=== PATIENT | female | born 1940 | race Caucasian/White ===

== ENCOUNTER 2023-08-07 08:53 | Observation (INO) | payer MEDICARE, OTHER ==
[~2023-08-07] VITALS: Ht 157.5 cm; Wt 57.5 kg
[~2023-08-07 08:53] MED LIST changes: -Amlodipine Bes2.5 MG PO; -CLOP75 PO; -ESCITALOPRAM OXA5 MG PO; -EUTHYROX50 MCG PO; -METO100ER PO; -PANT40 PO; -POTA10T PO; -Prinivil10 MG PO; -WARF2.5 PO; -WARF3 PO; -WARF5 PO
[2023-08-07] MEDS ORDERED: CLOP75 PO (09:22)
[2023-08-07] MEDS ORDERED: Amlodipine Bes2.5 MG PO (09:22)
[2023-08-07] MEDS ORDERED: ESCITALOPRAM OXA5 MG PO (09:24)
[2023-08-07] MEDS ORDERED: Prinivil10 MG PO (09:27)
[2023-08-07] MEDS ORDERED: EUTHYROX50 MCG PO (09:27)
[2023-08-07] MEDS ORDERED: METO100ER PO (09:27)
[2023-08-07] MEDS ORDERED: WARF3 PO ×2 (09:28→16:56)
[2023-08-07] MEDS ORDERED: WARF2.5 PO (09:28)
[2023-08-07 09:59] LABS: BASOPHILS ABSOLUTE AUTO 0.05 K/mm3 (0.00-0.23); BASOPHILS PERCENT AUTO 1 % (0-2); EOSINOPHILS ABSOLUTE AUTO 0.06 K/mm3 (0.00-0.68); EOSINOPHILS PERCENT AUTO 1 % (0-6); Hematocrit 18.9 % (33.0-51.0); IMMATURE GRAN ABSOLUTE AUTO 0.03 K/mm3 (0.00-0.10); IMMATURE GRAN PERCENT AUTO 1 % (0-1); LYMPHOCYTES ABSOLUTE AUTO 0.67 K/mm3 (0.84-5.20); LYMPHOCYTES PERCENT AUTO 10 % (21-46); MONOCYTES ABSOLUTE AUTO 0.62 K/mm3 (0.16-1.47); MONOCYTES PERCENT AUTO 10 % (4-13); Mean Corpuscular Volume 82 fL (80-100); Mean Platelet Volume 8.8 fL (9.1-12.4); NEUTROPHILS ABSOLUTE AUTO 5.13 K/mm3 (1.96-9.15); NEUTROPHILS PERCENT AUTO 78 % (41-73); Platelet Count 491 K/mm3 (150-400); RDW Coefficient Variation 17.5 % (11.7-14.2); RDW Standard Deviation 51.8 fL (35.1-46.3); White Blood Cell Count 6.56 K/mm3 (4.00-11.30)
[2023-08-07 10:05] LABS: Hemoglobin 5.3 g/dL (11.5-16.0)
[2023-08-07 10:09] LABS: IMMATURE RETIC FRACTION 26.9 % (2.3-16.0); International Normalized Ratio 1.64; Prothrombin Time Results 16.7 Sec (9.7-11.5); RETIC HGB EQUIVALENT 16.8 pg (28.20-36.60); RETICULOCYTE ABSOLUTE 0.0642 M/mm3 (0.0200-0.1100); RETICULOCYTE COUNT PERCENT 2.84 % (0.50-2.50)
[2023-08-07 10:33] LABS: Bilirubin, Direct 0.1 mg/dL (0.0-0.3); Percent Saturation 1.9 % (15.0-50.0)
[2023-08-07 10:38] LABS: Albumin, Blood 3.1 g/dL (3.4-5.0); Bilirubin, Total 0.6 mg/dL (0.1-1.0); Calcium, Blood 8.4 mg/dL (8.5-10.1); Creatinine, Blood 0.75 mg/dL (0.40-1.00); Globulin, Blood 3.2 g/dL (2.2-4.0); Thyroid Stimulating Hormone 1.37 uIU/mL (0.360-4.800); Total Protein, Blood 6.3 g/dL (6.4-8.2)
[2023-08-07] MEDS ORDERED: Potassium Chloride 20 MEQ/15 ML UDC PO ONE (11:45)
[2023-08-07] MEDS ORDERED: Furosemide 10 MG / ML 2ML Vial IV ONE (11:45)
[2023-08-07] MEDS ORDERED: NS 1,000 ML IV SCH (12:10)
[2023-08-07] MEDS ORDERED: FLU VACC QS2023-24(6MOS UP)/PF 60 MCG/0.5 ML SYRINGE IM SCH (12:55)
[2023-08-07] MEDS ORDERED: WARF5 PO (16:56)
[2023-08-07 17:44] LABS: BASOPHILS ABSOLUTE AUTO 0.04 K/mm3 (0.00-0.23); BASOPHILS PERCENT AUTO 1 % (0-2); EOSINOPHILS ABSOLUTE AUTO 0.03 K/mm3 (0.00-0.68); EOSINOPHILS PERCENT AUTO 0 % (0-6); Hemoglobin 6.9 g/dL (11.5-16.0); IMMATURE GRAN ABSOLUTE AUTO 0.02 K/mm3 (0.00-0.10); IMMATURE GRAN PERCENT AUTO 0 % (0-1); LYMPHOCYTES ABSOLUTE AUTO 0.99 K/mm3 (0.84-5.20); LYMPHOCYTES PERCENT AUTO 14 % (21-46); MONOCYTES ABSOLUTE AUTO 0.82 K/mm3 (0.16-1.47); MONOCYTES PERCENT AUTO 12 % (4-13); Mean Corpuscular HGB 25.1 pg (26.0-34.0); Mean Corpuscular Volume 84 fL (80-100); Mean Platelet Volume 8.9 fL (9.1-12.4); NEUTROPHILS ABSOLUTE AUTO 4.96 K/mm3 (1.96-9.15); NEUTROPHILS PERCENT AUTO 72 % (41-73); NRBC ABSOLUTE 0.02 K/mm3 (0.00-0.02); NRBC Auto 0.3 /100 WBC (0.0-0.2); Platelet Count 458 K/mm3 (150-400); RDW Coefficient Variation 16.9 % (11.7-14.2); RDW Standard Deviation 51.6 fL (35.1-46.3); Red Blood Cell Count 2.75 M/mm3 (3.80-5.20); White Blood Cell Count 6.86 K/mm3 (4.00-11.30)
[2023-08-07 19:31] VITALS: BP 127/67
[2023-08-07 19:55] VITALS: BP 148/62
[2023-08-07] MEDS ORDERED: Lisinopril 10 MG Tab PO SCH (21:00)
[2023-08-08] VITALS (7 sets, daily range): BP systolic 106–147; BP diastolic 51–68
[2023-08-08 05:05] LABS: BASOPHILS ABSOLUTE AUTO 0.05 K/mm3 (0.00-0.23); BASOPHILS PERCENT AUTO 1 % (0-2); EOSINOPHILS ABSOLUTE AUTO 0.08 K/mm3 (0.00-0.68); EOSINOPHILS PERCENT AUTO 1 % (0-6); Hematocrit 21.9 % (33.0-51.0); Hemoglobin 6.6 g/dL (11.5-16.0); IMMATURE GRAN ABSOLUTE AUTO 0.03 K/mm3 (0.00-0.10); IMMATURE GRAN PERCENT AUTO 0 % (0-1); LYMPHOCYTES ABSOLUTE AUTO 1.17 K/mm3 (0.84-5.20); LYMPHOCYTES PERCENT AUTO 17 % (21-46); MONOCYTES ABSOLUTE AUTO 0.78 K/mm3 (0.16-1.47); MONOCYTES PERCENT AUTO 11 % (4-13); Mean Corpuscular HGB 24.8 pg (26.0-34.0); Mean Corpuscular HGB Conc 30.1 g/dL (31.5-36.5); Mean Corpuscular Volume 82 fL (80-100); Mean Platelet Volume 8.9 fL (9.1-12.4); NEUTROPHILS ABSOLUTE AUTO 4.75 K/mm3 (1.96-9.15); NEUTROPHILS PERCENT AUTO 69 % (41-73); Platelet Count 437 K/mm3 (150-400); RDW Coefficient Variation 17.2 % (11.7-14.2); RDW Standard Deviation 51.6 fL (35.1-46.3); Red Blood Cell Count 2.66 M/mm3 (3.80-5.20); White Blood Cell Count 6.86 K/mm3 (4.00-11.30)
[2023-08-08 05:28] LABS: Anion Gap 5 mmol/L (6-16); Blood Urea Nitrogen 10 mg/dL (8-24); Bun/Creatinine Ratio 15.4 (12.0-20.0); CO2, Blood 30 mmol/L (21-32); Calcium, Blood 8.2 mg/dL (8.5-10.1); Chloride, Blood 106 mmol/L (98-108); Creatinine, Blood 0.65 mg/dL (0.40-1.00); Glomerular Filtration Rate 87 (60-); Glucose, Blood 99 mg/dL (70-99); Magnesium, Blood 2.1 mg/dL (1.6-2.4); Phosphorus, Blood 2.2 mg/dL (2.5-4.9); Sodium, Blood 141 mmol/L (136-145)
[2023-08-08] MEDS ORDERED: Levothyroxine Sodium 0.05 MG Tab PO SCH (06:00)
[2023-08-08] MEDS ORDERED: Pantoprazole Sodium 40 MG Tab PO SCH (06:00)
[2023-08-08] MEDS ORDERED: NS 500 ML IV SCH (08:10)
[2023-08-08] MEDS ORDERED: Metoprolol Succinate 50 MG TABCR PO SCH (09:00)
[2023-08-08] MEDS ORDERED: AmLODIPine Besylate 5 MG Tab PO SCH (09:00)
[2023-08-08] MEDS ORDERED: Citalopram Hydrobromide 10 MG TAB PO SCH (09:00)
[2023-08-08] MEDS ORDERED: Sod Ferric Gluc Complx/Sucrose 125 MG in NS 100 ML IV SCH (12:00)
[2023-08-08] MEDS ORDERED: PANT40 PO (16:52)
[2023-08-08] MEDS ORDERED: POTA10T PO (16:53)
[2023-08-09 02:18] LABS: HAPTOGLOBIN 212 mg/dL (30-200)
== END 2023-08-08 17:24 | disposition home or self-care (01) ==
LOC: ER 08:53 → MEDS 08:54
PROVIDERS: Student in an Organized Health Care Education/Training Program; ADMIT Family Medicine
DX: D50.9 Iron deficiency anemia, unspecified (principal); I48.91 Unspecified atrial fibrillation; I11.0 Hypertensive heart disease with heart failure; I50.20 Unspecified systolic (congestive) heart failure; J44.9 Chronic obstructive pulmonary disease, unspecified; E03.9 Hypothyroidism, unspecified; Z66 Do not resuscitate; R06.00 Dyspnea, unspecified; Z95.0 Presence of cardiac pacemaker; Z79.890 Hormone replacement therapy; Z79.01 Long term (current) use of anticoagulants; Z79.02 Long term (current) use of antithrombotics/antiplatelets; Z79.899 Other long term (current) drug therapy; Z95.818 Presence of other cardiac implants and grafts
CPT/HCPCS: 36415; 36430; 71046; 74177; 80053; 80069; 82248; 83010; 83540; 83550; 83615; 83735; 83880; 84443; 85025; 85045; 85610; 86850; 86880; 86900; 86901; 86923; 93005; 93010; 96361; 96365; 96374; 96375; 99285-25; A9270; G0378; J1940; J2916; J7030; P9016; Q9967

== ENCOUNTER → 2023-08-07 | Outpatient (CLI) | payer MEDICARE, OTHER ==
[~2023-08-07] MED LIST: Amlodipine Bes2.5 MG PO; CLOP75 PO; ESCITALOPRAM OXA5 MG PO; EUTHYROX50 MCG PO; JANTOVEN5 M2 PO; METO100ER PO; PANT40 PO; POTA10T PO; Prinivil10 MG PO; WARF2.5 PO; WARF3 PO; WARF5 PO
[2023-08-07 07:55] LABS: BASOPHILS ABSOLUTE AUTO 0.07 K/mm3 (0.00-0.23); BASOPHILS PERCENT AUTO 1 % (0-2); EOSINOPHILS ABSOLUTE AUTO 0.13 K/mm3 (0.00-0.68); EOSINOPHILS PERCENT AUTO 2 % (0-6); Hematocrit 19.9 % (33.0-51.0); IMMATURE GRAN ABSOLUTE AUTO 0.05 K/mm3 (0.00-0.10); IMMATURE GRAN PERCENT AUTO 1 % (0-1); LYMPHOCYTES PERCENT AUTO 17 % (21-46); MONOCYTES ABSOLUTE AUTO 0.71 K/mm3 (0.16-1.47); MONOCYTES PERCENT AUTO 10 % (4-13); Mean Corpuscular HGB 23.6 pg (26.0-34.0); Mean Corpuscular HGB Conc 28.6 g/dL (31.5-36.5); Mean Corpuscular Volume 82 fL (80-100); Mean Platelet Volume 8.8 fL (9.1-12.4); NEUTROPHILS ABSOLUTE AUTO 5.22 K/mm3 (1.96-9.15); NEUTROPHILS PERCENT AUTO 70 % (41-73); Platelet Count 539 K/mm3 (150-400); RDW Coefficient Variation 17.3 % (11.7-14.2); RDW Standard Deviation 52.1 fL (35.1-46.3); Red Blood Cell Count 2.42 M/mm3 (3.80-5.20); White Blood Cell Count 7.48 K/mm3 (4.00-11.30)
[2023-08-07 07:57] LABS: Hemoglobin 5.7 g/dL (11.5-16.0)
[2023-08-07 08:05] LABS: Albumin, Blood 3.1 g/dL (3.4-5.0); Albumin/Globulin Ratio 0.9 (0.8-1.8); Bilirubin, Total 0.5 mg/dL (0.1-1.0); Bun/Creatinine Ratio 15.6 (12.0-20.0); Calcium, Blood 8.4 mg/dL (8.5-10.1); Creatinine, Blood 0.9 mg/dL (0.40-1.00); Globulin, Blood 3.4 g/dL (2.2-4.0); Potassium, Blood 2.8 mmol/L (3.5-5.5); Total Protein, Blood 6.5 g/dL (6.4-8.2)
== END ==
LOC: LAB 07:51 → LAB SHORT 07:51
PROVIDERS: Physician Assistant
DX: R06.00 Dyspnea, unspecified (principal)
CPT/HCPCS: 80053; 83880; 85025

== ENCOUNTER 2024-05-06 02:43 | Inpatient (IN) | payer MEDICARE, OTHER ==
[~2024-05-06] VITALS: Ht 165.1 cm; Wt 54.4 kg
[~2024-05-06 02:43] MED LIST changes: +Amlodipine Bes2.5 MG PO; +CLOP75 PO; +ESCITALOPRAM OXA5 MG PO; +EUTHYROX50 MCG PO; +METO100ER PO; +PANT40 PO; +POTA10T PO; +Prinivil10 MG PO; +WARF2.5 PO; +WARF3 PO; +WARF5 PO
[2024-05-06] MEDS ORDERED: METO50ER PO (03:19)
[2024-05-06] MEDS ORDERED: NS 1,000 ML IV SCH (03:25)
[2024-05-06] MEDS ORDERED: Diphth,Pertuss(Acell),Tet Vac 0.5 ML VIAL IM ONE (03:30)
[2024-05-06] MEDS ORDERED: Ondansetron HCl 2 MG / ML 2ML Vial IV ONE (03:30)
[2024-05-06 03:36] LABS: BASOPHILS ABSOLUTE AUTO 0.07 K/mm3 (0.00-0.23); BASOPHILS PERCENT AUTO 1 % (0-2); EOSINOPHILS ABSOLUTE AUTO 0.14 K/mm3 (0.00-0.68); EOSINOPHILS PERCENT AUTO 2 % (0-6); Hematocrit 37.7 % (33.0-51.0); Hemoglobin 12.6 g/dL (11.5-16.0); IMMATURE GRAN ABSOLUTE AUTO 0.02 K/mm3 (0.00-0.10); IMMATURE GRAN PERCENT AUTO 0 % (0-1); LYMPHOCYTES ABSOLUTE AUTO 2.47 K/mm3 (0.84-5.20); LYMPHOCYTES PERCENT AUTO 35 % (21-46); MONOCYTES ABSOLUTE AUTO 0.62 K/mm3 (0.16-1.47); MONOCYTES PERCENT AUTO 9 % (4-13); Mean Corpuscular HGB 31.8 pg (26.0-34.0); Mean Corpuscular HGB Conc 33.4 g/dL (31.5-36.5); Mean Corpuscular Volume 95 fL (80-100); NEUTROPHILS PERCENT AUTO 53 % (41-73); Platelet Count 224 K/mm3 (150-400); RDW Coefficient Variation 13.4 % (11.7-14.2); RDW Standard Deviation 47.3 fL (35.1-46.3); Red Blood Cell Count 3.96 M/mm3 (3.80-5.20); White Blood Cell Count 7.12 K/mm3 (4.00-11.30)
[2024-05-06 03:50] LABS: Albumin, Blood 3.5 g/dL (3.4-5.0); Albumin/Globulin Ratio 1.2 (0.8-1.8); Bilirubin, Total 0.3 mg/dL (0.1-1.0); Bun/Creatinine Ratio 32.3 (12.0-20.0); Creatinine, Blood 0.71 mg/dL (0.40-1.00); Potassium, Blood 3.9 mmol/L (3.5-5.5); Total Protein, Blood 6.5 g/dL (6.4-8.2)
[2024-05-06] MEDS ORDERED: FentaNYL Citrate 50 MCG/ML 2 ML Injection IV PRN ×3 (04:25→21:35)
[2024-05-06] MEDS ORDERED: Ondansetron HCl 2 MG / ML 2ML Vial IV PRN (05:00)
[2024-05-06] MEDS ORDERED: FLU VACC TS2024-25(6MOS UP)/PF 45 MCG/0.5 ML SYRINGE IM SCH (05:00)
[2024-05-06 13:11] VITALS: BP 110/91
--- NOTE | 2024-05-06 15:29 | NUR ---
PT ARRIVED TO THE ROOM FROM ER VIA A GOURNEY. SLID PT TO HOSPITAL BED. PT GRIMACING WITH MOVEMENT. A&O X2-3 AT BASELINE. DOES NOT RECALL THE FALL LAST NIGHT. 2L NC UPON ARRIVAL TO KEEP SATS GREATER THAN 90%. PUREWICK IN PLACE. CHANGED PATIENT TO HOSPITAL GOWN. BELONGINGS GIVEN TO MAGDA. SKIN TEAR ON R HAND, QUARTER SIZED, REDRESSED WITH EXODERM AND TEGADERM, COVERED WITH MESH. R LEG EXTERNALLY ROTATED. PAIN WITH MOVEMENT. PAIN MANAGED PER EMAR. VSS. PERRLA. PPP. CAP REFILL <3 SECONDS
[2024-05-06] MEDS ORDERED: Acetaminophen 325 MG TABLET PO PRN (15:40)
--- NOTE | 2024-05-06 17:19 | NUR ---
Shift Summary No acute events noted since arrival to room. A&Ox2 at this time. Forgetful at times. Reoriented as needed. Bed alarm on. Pleasent mood, flat affect. PERRLA, VSS, 1L NC, Sats >90%. R hand skin tear covered with xeroform, tegaderm and coban, c/d/i at this time. Pain managed per emar. Daughter at bedside. Purewick in place. Eating small bites of food/drinking/voiding.
[2024-05-06] MEDS ORDERED: Metoprolol Succinate 50 MG TABCR PO SCH (18:00)
[2024-05-06 19:42] VITALS: BP 152/73
[2024-05-06] MEDS ORDERED: QUET25 PO (20:28)
--- NOTE | 2024-05-07 04:00 | NUR ---
HARVEY PLACEMENT HARVEY ATTEMPTED TO BE PLACED BY THIS RN AND FORENSIC ENGINEER. ATTEMPTS FAILED, ANGELO RN FROM PCU CAME TO ROOM AND PLACED HARVEY. VERY DIFFICULT PLACEMENT. HARVEY HAD FLASH WHEN PLACED. HARVEY NOW DRAINING VERY SLOWLY WITH VERY LITTLE OUTPUT. ATTEMPTED TO ADVANCE HARVEY FUTHER TO GET MORE FLOW. REPOSTIONED PT ABLE TO. FLOW OF CATHETER STILL REMAINS VERY SLOW AT THIS TIME.
[2024-05-07 04:21] LABS: Source, Urine Foley catheter
[2024-05-07 04:33] LABS: Bilirubin, Urine Neg (Neg); Blood, Urine 4+ (Neg); Glucose Qualitative, Urine Neg (Neg); Ketones, Urine Neg (Neg); Leukocyte Esterase, Urine 3+ (Neg); Nitrite, Urine Neg (Neg); Protein, Urine 2+ (Neg); Specific Gravity, Urine 1.025 (1.003-1.022); Urobilinogen, Urine NORM (Normal)
--- NOTE | 2024-05-07 04:45 | NUR ---
SHIFT SUMMARY PT RESTLESS T/O NIGHT. PAIN MANAGED PER EMAR. PT NPO AT [facility] FOR POSSIBLE SURGERY TODAY. PT NEEDED HARVEY TO BE PLCED DUE TO RETENTION AND NO BEING ABLE TO VOID. HARVEY PLACEMENT WAS DIFFICULT. AHRVEY FINALLY PLACED AND SLOWLY DRAINING, UA SENT TO LAB. PT RLE EXT ROTATED, PULSES STRONG, ABLE TO WIGGLE TOES AND DENIES N/T. VSS. DAUGHTER (CAREGIVER) AT BEDSIDE. NO OTHER CONCERNS AT THIS TIME CALL LIGHT WITHIN REACH
[2024-05-07 05:07] LABS: Appearance, Urine Hazy (Clear); Color, Urine Yellow (P-Yellow)
[2024-05-07 05:11] LABS: Bacteria Mod /hpf; Red Blood Cells, Urine 0-2 /hpf (0-2); Squamous Epithelial Cells Mod /hpf (Few); White Blood Cells, Urine 50-100 /hpf (0-5)
[2024-05-07 05:25] VITALS: BP 157/67
[2024-05-07 05:54] LABS: BASOPHILS ABSOLUTE AUTO 0.04 K/mm3 (0.00-0.23); BASOPHILS PERCENT AUTO 0 % (0-2); EOSINOPHILS PERCENT AUTO 0 % (0-6); Hematocrit 31.1 % (33.0-51.0); Hemoglobin 10.4 g/dL (11.5-16.0); IMMATURE GRAN ABSOLUTE AUTO 0.04 K/mm3 (0.00-0.10); IMMATURE GRAN PERCENT AUTO 0 % (0-1); LYMPHOCYTES ABSOLUTE AUTO 1.32 K/mm3 (0.84-5.20); LYMPHOCYTES PERCENT AUTO 12 % (21-46); MONOCYTES ABSOLUTE AUTO 1.16 K/mm3 (0.16-1.47); MONOCYTES PERCENT AUTO 11 % (4-13); Mean Corpuscular HGB 31.8 pg (26.0-34.0); Mean Corpuscular HGB Conc 33.4 g/dL (31.5-36.5); Mean Corpuscular Volume 95 fL (80-100); Mean Platelet Volume 9.2 fL (9.1-12.4); NEUTROPHILS ABSOLUTE AUTO 8.22 K/mm3 (1.96-9.15); NEUTROPHILS PERCENT AUTO 76 % (41-73); Platelet Count 190 K/mm3 (150-400); RDW Coefficient Variation 13.6 % (11.7-14.2); RDW Standard Deviation 47.8 fL (35.1-46.3); Red Blood Cell Count 3.27 M/mm3 (3.80-5.20); White Blood Cell Count 10.78 K/mm3 (4.00-11.30)
[2024-05-07] MEDS ORDERED: Levothyroxine Sodium 0.05 MG Tab PO SCH (06:00)
[2024-05-07 06:15] LABS: Bun/Creatinine Ratio 36.1 (12.0-20.0); Calcium, Blood 8.8 mg/dL (8.5-10.1); Creatinine, Blood 0.72 mg/dL (0.40-1.00)
[2024-05-07] MEDS ORDERED: Lactated Ringer's 1,000 ML IV SCH (06:20)
[2024-05-07 07:26] VITALS: BP 130/63
[2024-05-07] MEDS ORDERED: Enoxaparin 40 MG/0.4 ML SYR SC SCH (09:00)
[2024-05-07] MEDS ORDERED: Citalopram Hydrobromide 10 MG TAB PO SCH (09:00)
[2024-05-07 14:59] VITALS: BP 128/56
--- NOTE | 2024-05-07 17:10 | NUR ---
SHIFT SUMMARY PT IS CONFUSED, A/O X 0-1, DAUGHTER IN ROOM HELPING W/ PT CARE. PT HAS HARVEY DRAINING MINIMAL YELLOW URINE BUT CATHETER IS LEAKING, CHANGED ATTENDS AND LINENS UNDER PT MULTIPLE TIMES DUE TO HEAVY INC VOIDS/LEAKING THIS SHIFT. PT IS NOT COMPLAINING OF BLADDER PAIN. TOLERATING PO FLUIDS AND REG DIET, WILL BE NPO @ 0000 FOR SURGERY TOMORROW. VSS. PT MEDICATED FOR PAIN W/ FENTANYL PER EMAR, CONT BIOX IN PLACE, 2L PT ABLE TO REST MOST OF DAY BUT DOES HAVE INCREASED PAIN AND AGITATION W/ MOVEMENT. LEGS ELEVATED ON PILLOW. CAP REFILL IN R TOES [address]IGHT IN PLACE, BED ALARM ON FOR SAFETY.
[2024-05-08] VITALS (21 sets, daily range): BP systolic 115–166; BP diastolic 61–125
--- NOTE | 2024-05-08 04:26 | NUR ---
SHIFT SUMMARY PT RESTED DURING THE NIGHT. PAIN MANAGED PER EMAR. PT NPO AT [place] FOR SURGERY TODAY. HARVEY IN PLACE, URINE STILL LEAKING AROUND THE HARVEY. MADE AWARE, WANTS TO KEEP IT IN FOR THE TIME BEING. PT DENIES N/T TO RLE, AND TO WIGGLE TOES. VSS. NO OTHER CONCERNS AT THIS TIME, CALL LIGHT WITHIN REACH
[2024-05-08] MEDS ORDERED: CeFAZolin Sodium 2,000 MG in NS 100 ML IV SCH ×2 (07:50→19:30)
[2024-05-08] MEDS ORDERED: Tranexamic Acid 100 ML IV SCH ×2 (07:50)
[2024-05-08 09:13] LABS: BASOPHILS ABSOLUTE AUTO 0.05 K/mm3 (0.00-0.23); BASOPHILS PERCENT AUTO 1 % (0-2); EOSINOPHILS ABSOLUTE AUTO 0.01 K/mm3 (0.00-0.68); EOSINOPHILS PERCENT AUTO 0 % (0-6); Hematocrit 29.6 % (33.0-51.0); Hemoglobin 9.9 g/dL (11.5-16.0); IMMATURE GRAN ABSOLUTE AUTO 0.05 K/mm3 (0.00-0.10); IMMATURE GRAN PERCENT AUTO 1 % (0-1); LYMPHOCYTES ABSOLUTE AUTO 1.24 K/mm3 (0.84-5.20); LYMPHOCYTES PERCENT AUTO 12 % (21-46); MONOCYTES ABSOLUTE AUTO 1.17 K/mm3 (0.16-1.47); MONOCYTES PERCENT AUTO 11 % (4-13); Mean Corpuscular HGB 32.6 pg (26.0-34.0); Mean Corpuscular HGB Conc 33.4 g/dL (31.5-36.5); Mean Corpuscular Volume 97 fL (80-100); Mean Platelet Volume 9.3 fL (9.1-12.4); NEUTROPHILS PERCENT AUTO 76 % (41-73); Platelet Count 169 K/mm3 (150-400); RDW Coefficient Variation 13.4 % (11.7-14.2); RDW Standard Deviation 48.4 fL (35.1-46.3); Red Blood Cell Count 3.04 M/mm3 (3.80-5.20); White Blood Cell Count 10.62 K/mm3 (4.00-11.30)
[2024-05-08 09:34] LABS: Bun/Creatinine Ratio 32.2 (12.0-20.0); Calcium, Blood 8.3 mg/dL (8.5-10.1); Creatinine, Blood 0.65 mg/dL (0.40-1.00); Potassium, Blood 4.1 mmol/L (3.5-5.5)
[2024-05-08] MEDS ORDERED: CeFAZolin Sodium 2,000 MG VIAL ONE (09:51)
--- NOTE | 2024-05-08 10:05 | NUR ---
20G IV IN L AC THAT FLOWS WELL TO GRAVIY
[2024-05-08] MEDS ORDERED: Ropivacaine 0.5% HCl/Pf 123.125 MG,EPINEPHrine HCL 0.25 MG,Ketorolac Tromethamine 15 MG... INFIL SCH (10:45)
[2024-05-08] MEDS ORDERED: propofoL 20 ML IV ONE (11:11)
[2024-05-08] MEDS ORDERED: FentaNYL Citrate 50 MCG/ML 2 ML Injection ONE ×2 (11:11→13:47)
[2024-05-08] MEDS ORDERED: Rocuronium Bromide 10 MG/ML 5ML Injection IV ONE ×2 (11:11→13:21)
[2024-05-08] MEDS ORDERED: Lidocaine HCl 2% 20 ML MDV ONE (11:13)
[2024-05-08] MEDS ORDERED: Ondansetron HCl 2 MG / ML 2ML Vial ONE (11:34)
[2024-05-08] MEDS ORDERED: Dexamethasone Sod Phos 10 MG/ML 1ML VIAL ONE (11:34)
[2024-05-08] MEDS ORDERED: Ketorolac Tromethamine 30mg Vial ONE (11:35)
[2024-05-08] MEDS ORDERED: Phenylephrine HCl 10mg/ml 1 ml Vial ONE (14:01)
[2024-05-08] MEDS ORDERED: HYDROmorphone HCl/Pf 1MG SYR ONE (14:39)
[2024-05-08] MEDS ORDERED: Sugammadex Sodium 200 MG/2ML SDV (100 MG/ML) ONE (14:57)
[2024-05-08] MEDS ORDERED: OxyCODONE HCL 5 MG TAB PO PRN ×2 (15:10)
[2024-05-08] MEDS ORDERED: Bisacodyl 10 MG Supp PR PRN (15:10)
[2024-05-08] MEDS ORDERED: FLU VACC TS2024-25(6MOS UP)/PF 45 MCG/0.5 ML SYRINGE IM ONE (15:15)
[2024-05-08] MEDS ORDERED: HYDROmorphone HCl/Pf 1MG SYR IV PRN (15:15)
[2024-05-08] MEDS ORDERED: Prochlorperazine Edisylate 10 mg Vial IV PRN (15:15)
[2024-05-08] MEDS ORDERED: DiphenhydrAMINE HCL 25 MG Cap PO PRN (15:15)
[2024-05-08] MEDS ORDERED: Promethazine HCl 25 MG Tab PO PRN (15:15)
[2024-05-08] MEDS ORDERED: Metoclopramide HCl 5MG / ML 2ML Vial IV PRN (15:20)
[2024-05-08] MEDS ORDERED: Magnesium Hydroxide Conc 10 ML UDC PO PRN (15:20)
[2024-05-08] MEDS ORDERED: Ondansetron HCl 2 MG / ML 2ML Vial IV PRN (15:20)
[2024-05-08] MEDS ORDERED: Lactated Ringer's 1,000 ML IV SCH (15:20)
[2024-05-08] MEDS ORDERED: Acetaminophen 500 MG Tab PO SCH (16:00)
--- NOTE | 2024-05-08 16:38 | NUR ---
POST OP PT RETURNED TO ROOM FROM PACU. PT DROWSY BUT AROUSABLE, CONT BIOX REAPPLIED TO TOE ON R FOOT, DAUGHTER AT BEDSIDE ASSISTING W/ PT CARE. VSS. AQUACEL TO R HIP C/D/I. CAP REFILL IN R TOES 2 SECS. BED ALARM ON. IV FLUIDS INFUSING AT ORDERED RATE. FOAM WEDGE IN PLACE BETWEEN LEGS FROM OR. HARVEY IN PLACE DRAINING YELLOW URINE. CALL LIGHT IN REACH.
[2024-05-08] MEDS ORDERED: Ketorolac Tromethamine 15mg Vial IV SCH (18:00)
[2024-05-08] MEDS ORDERED: Docusate Sodium 100 MG Cap PO SCH (21:00)
[2024-05-09 04:02] VITALS: BP 104/62
--- NOTE | 2024-05-09 04:16 | NUR ---
SHIFT SUMMARY ANNE WAS ALERT AND ORIENTED TO HER DAUGHTER AT START OF SHIFT. PT DAUGHTER AT BEDSIDE T/O SHIFT. PAIN MANAGED T/O SHIFT, PT RESTLESS AT TIMES, NO BEHAVIORS NOTED TONIGHT. PT LEG IMMOBILIZER IN PLACE. PT REPOSITIONED FREQUENTLY. NO ACUTE EVENTS TONIGHT. PT DAUGHTER IS INTERESTED IN A PALLIATIVE CONSULT. PT RESTING COMFORTABLTY AT THIS TIME. DRESSING TO R HIP C/D/I, DISTAL CIRCULATION INTACT.
[2024-05-09 04:38] LABS: BASOPHILS ABSOLUTE AUTO 0.02 K/mm3 (0.00-0.23); BASOPHILS PERCENT AUTO 0 % (0-2); EOSINOPHILS PERCENT AUTO 0 % (0-6); Hematocrit 19.6 % (33.0-51.0); Hemoglobin 6.6 g/dL (11.5-16.0); IMMATURE GRAN ABSOLUTE AUTO 0.07 K/mm3 (0.00-0.10); IMMATURE GRAN PERCENT AUTO 0 % (0-1); LYMPHOCYTES PERCENT AUTO 5 % (21-46); MONOCYTES ABSOLUTE AUTO 1.65 K/mm3 (0.16-1.47); MONOCYTES PERCENT AUTO 10 % (4-13); Mean Corpuscular HGB 32.7 pg (26.0-34.0); Mean Corpuscular HGB Conc 33.7 g/dL (31.5-36.5); Mean Corpuscular Volume 97 fL (80-100); Mean Platelet Volume 9.7 fL (9.1-12.4); NEUTROPHILS PERCENT AUTO 85 % (41-73); Platelet Count 170 K/mm3 (150-400); RDW Coefficient Variation 13.4 % (11.7-14.2); RDW Standard Deviation 47.4 fL (35.1-46.3); Red Blood Cell Count 2.02 M/mm3 (3.80-5.20); White Blood Cell Count 17.24 K/mm3 (4.00-11.30)
[2024-05-09 05:00] LABS: Bun/Creatinine Ratio 35.4 (12.0-20.0); Calcium, Blood 7.9 mg/dL (8.5-10.1); Creatinine, Blood 0.65 mg/dL (0.40-1.00); Potassium, Blood 4.3 mmol/L (3.5-5.5)
--- NOTE | 2024-05-09 05:30 | NUR ---
PT HAD A REPORTED EBL 750 ML WITH OR.CURRENTLY OUTPUT PER HARVEY LESS THAN 200 ML.IT WAS REPORTED THAT PTS PRIOR HARVEY HAD LEAKING AND WAS REPLACED PER DAY SHIFT WITH NO ACCURATE OUTPUT MEASUREMENT.PTS MAP REMAINS ABOVE 65. URINE APPEARS CONCENTRATED.H/H THIS AM WITH DROP TO 6.6/19.6,WBC 17.24. I CALLED DR BECKWITH AND RECEIVED ORDERS TO TRANSFUSE 1 UNIT PRBC AND INCREASE IVF RATE TO 100 ML/HR.
[2024-05-09] MEDS ORDERED: NS 500 ML IV SCH (06:45)
[2024-05-09 07:12] VITALS: BP 122/51
[2024-05-09] MEDS ORDERED: LORazepam 2 MG/ML 1ML Injection IV PRN (09:30)
[2024-05-09] MEDS ORDERED: Scopolamine Hydrobromide Patch TOP PRN (09:30)
[2024-05-09] MEDS ORDERED: Morphine Sulfate 20 MG/1ML 1 ML Oral Syringe SL PRN (09:30)
[2024-05-09] MEDS ORDERED: Morphine Sulfate 10 MG/ML 1MLSYR IV PRN (09:30)
[2024-05-09] MEDS ORDERED: Ondansetron HCl 2 MG / ML 2ML Vial IV PRN (09:30)
[2024-05-09] MEDS ORDERED: Atropine Sulfate 1% Opth Soln 2ML BTL SL PRN (09:30)
[2024-05-09] MEDS ORDERED: Promethazine HCl 25 MG Supp PR PRN (10:25)
[2024-05-09] MEDS ORDERED: Acetaminophen 650 MG Supp PR PRN (10:25)
[2024-05-09] MEDS ORDERED: LORazepam 1 MG Tab PO PRN (10:25)
--- NOTE | 2024-05-09 10:30 | NUR ---
GOALS OF CARE VISIT WITH PT AND DTR. PT WAKES EASILY WHEN HER NAME IS CALLED. SHE DENIES ANY PAIN AT THIS TIME. WHILE PT IS AT REST, SHE IS DISPLAYING JERKING MOVEMENTS, SPASMS. THERAPUTIC CONVERSATION WITH PT'S DTR/POA RE: PT'S CARE AND NEEDS THE LAST COUPLE OF YEARS. SHE EXPRESSES WANTING TO TAKE HER MOM HOME ON HOSPICE AND FEELS LIKE THIS IS WHAT HER MOM WOULD WANT. UPDATE PROVIDED TO CARE TEAM (ZOEY, RN, PROVIDER). PHONE CALL WITH PROVIDER: CLARIFICATION ON IV MEDICATIONS. PT DOES NOT HAVE IV ACCESS. ORDERS UPDATED PER PROVIDER CONVERSATION.
--- NOTE | 2024-05-09 16:27 | NUR ---
SHIFT SUMMARY PT IS POD#1. PAIN MANAGED WITH ROXANOL. PT RESISTANT TO EATING AND TAKING PILLS. SHE HAS BEEN TAKING SOME WATER WHEN HER DAUGHTER OFFERS. PT USUALLY RESPONDS WELL TO CARE PROVIDED BY HER DAUGHTER BUT IS RESISTANT WHEN STAFF PROVIDES CARE. PT WAS TRANSITIONED TO COMFORT CARE TODAY. SHE HAS RESTED MOST OF THE DAY. PT'S DAUGHTER HAS BEEN AT THE BEDSIDE TO ASSIST WITH CARE AND TO PROVIDE SUPPORT.
--- NOTE | 2024-05-10 04:28 | NUR ---
SHIFT SUMMARY ANNE WAS SLEEPING, BUT RESPONSIVE TO VERBAL STIMULATION. ORIENTED TO DAUGHTER. PT WAS CHANGED TO COMFORT CARE ON DAY SHIFT, C/C MEASURES IN PLACE. PT WAS GIVEN 10MG ROXINOL AROUND 1330 ON DAY SHIFT AND NO FURTHER PAIN MEDS, UPON ASSUMING CARE PT APPEARED RELAXED AND COMFORTABLE STILL, PT DAUGHTER IN AGREEMENT THAT PT DOES NOT HAVE ANY INDICATION OF DISCOMFORT. ONE DOSE OF 5MG GIVEN IN EARLY AM D/T INCREASING SIGNS OF DISCOMFORT. PT SLEEPING SOUNDLY AT THIS TIME, PT DAUGHTER AT BEDSIDE.
[2024-05-10] MEDS ORDERED: Acetaminophen 325 MG TABLET PO PRN (18:40)
--- NOTE | 2024-05-10 20:09 | NUR ---
SHIFT SUMMARY PT IS POD#2. PT HAS HAD MINIMAL PAIN AND HAS NOT REQUIRED PAIN MEDICATION. PT HAS SLIGHT DISCOMFORT WITH REPOSITIONING BUT QUICKLY FALLS BACK TO SLEEP, NO WINCING GRIMACING OR MOANING OBSERVED WHILE AT REST. FAMILY HAS ASKED STAFF TO MINIMIZE PAIN MEDICATION IN ORDER TO OPTIMIZE PT'S WAKEFUL TIMES; EDUCATION WAS PROVIDED ABOUT PAIN MANAGEMENT AND HER DAUGHTER WAS RECEPTIVE AND WOULD WANTS GOOD PAIN MANAGEMENT BUT TO MINIMIZE WHEN POSSIBLE. PT'S DAUGHTER HAS BEEN AT THE BEDSIDE T/O THE DAY, SHE HAS BEEN SUPPORTIVE AND ASSISTED WITH PROVIDING CARE FOR HER MOTHER. PT'S DAUGHTER EXPRESSED CONCERNS TO THIS RN, THERAPEUTIC LISTENING PROVIDED. PT HAS HAD LOW INTAKE THIS SHIFT, SHE REFUSED ALL MEALS BUT DID EAT SOME ICE CREAM AND DRANK SOME APPLE JUICE FOR DINNER. HARVEY IN PLACE DRAINING DARK YELLOW URINE. PT'S DAUGHTER WAS PROVIDED WITH EDUCATION REGARDING COMFORT CARE/END OF LIFE CARE, SHE WAS VERY RECEPTIVE. BEDSIDE REPORT GIVEN TO NOC RN.
--- NOTE | 2024-05-11 05:03 | NUR ---
SHIFT SUMMARY PT WAS ABLE TO REST MOST OF THE NIGHT BUT IS AROUSABLE TO VOICE, RESPONDING APPROPRIATELY AND COOPERATIVE W/ CARE. REPOSITIONED PT THROUGHOUT THE NIGHT FOR COMFORT. PT GRIMACED INTERMITTENTLY W/ REPOSITIONING BUT VERBALLY DENIED PAIN AT REST THROUGHOUT THE NIGHT. DAUGHTER AT BEDSIDE ALL NIGHT, ASSISTED W/ PT CARE. PT REFUSED PO FLUIDS THIS SHIFT. 1LNC APPLIED FOR COMFORT, PT REMOVED AT TIMES. LUNGS CLEAR, RESPIRATIONS E/U. BED ALARM ON. HARVEY DRAINING DARK YELLOW URINE. PT'S DAUGHTER EXPRESSED SHE IS LOOKING FORWARD TO BRINGING HER MOM HOME TODAY.
--- NOTE | 2024-05-11 05:50 | NUR ---
PT MORE AWAKE, REFUSING TO TAKE PILLS, DAUGHTER REQUESTING TO AVOID NARCOTICS SHE DOES NOT WANT TO MAKE PT DROWSY. PT APPEARS COMFORTABLE BUT IS VERBALLY REPORTING PAIN, REPOSITIONED PT AND EDUCATED DAUGHTER REGARDING OPTIONS. NOTIFIED DR. CARRILLO, ORDER RECIEVED FOR LIQUID TYLENOL.
[2024-05-11] MEDS ORDERED: Acetaminophen 160MG / 5ML 10.15 UDC PO PRN (06:00)
[2024-05-11] MEDS ORDERED: Acetaminophen325 M1 PO (11:13)
--- NOTE | 2024-05-11 12:26 | NUR ---
DISCHARGE NOTE POD 3 ORIF. INCISION SITE C/D/I, COVERED WITH AQUACEL. REPLACEMENT DRESSINGS SENT HOME WITH DAUGHTER. A&O X1. UPON DISCHARGE, PT SLID TO OK. PT BEING TRANSPORTED TO HOME VIA TRANSPORTATION SERVICE WHERE HER DAUGHTER WILL BE CARING FOR HER. DAUGHTER IS POA, EXPRESSED UNDERSTANDING OF DISCHARGE INSTRUCTIONS.
== END 2024-05-11 12:20 | disposition hospice, home (50) | DRG 467 ==
LOC: ER 02:43 → SURS 04:59 → ERHOLD 04:59 → SURS 12:50
PROVIDERS: Emergency Medicine; Internal Medicine; Nurse Practitioner Acute Care; Orthopaedic Surgery; ADMIT Family Medicine
PROC: 0SPR0JZ Removal of Synthetic Substitute from Right Hip Joint, Femoral Surface, Open Approach (ICD-10-PCS; 2024-05-08)
PROC: 0QS604Z Reposition Right Upper Femur with Internal Fixation Device, Open Approach (ICD-10-PCS; 2024-05-08)
PROC: 0SRR01Z Replacement of Right Hip Joint, Femoral Surface with Metal Synthetic Substitute, Open Approach (ICD-10-PCS; principal; 2024-05-08 11:00)
PROC: 30233N1 Transfusion of Nonautologous Red Blood Cells into Peripheral Vein, Percutaneous Approach (ICD-10-PCS; 2024-05-09)
DX: S72.001A Fracture of unspecified part of neck of right femur, initial encounter for closed fracture (principal); D62 Acute posthemorrhagic anemia; I50.22 Chronic systolic (congestive) heart failure; M97.01XA Periprosthetic fracture around internal prosthetic right hip joint, initial encounter; F05 Delirium due to known physiological condition; Z66 Do not resuscitate; Z51.5 Encounter for palliative care; W18.30XA Fall on same level, unspecified, initial encounter; I48.91 Unspecified atrial fibrillation; E03.9 Hypothyroidism, unspecified; I49.5 Sick sinus syndrome; J44.9 Chronic obstructive pulmonary disease, unspecified; I11.0 Hypertensive heart disease with heart failure; F41.9 Anxiety disorder, unspecified; F32.A Depression, unspecified; M16.11 Unilateral primary osteoarthritis, right hip; Z95.0 Presence of cardiac pacemaker; Z79.890 Hormone replacement therapy; Z79.899 Other long term (current) drug therapy
CPT/HCPCS: 36415; 51702; 70450; 72125; 72170; 73502; 73552; 80048; 80053; 81001; 85025; 86850; 86900; 86901; 86923; 87086; 90471; 90715; 93005; 93010; 94762; 96361; 96374; 96375; 99285-25; A9270; J0690; J1100; J1885; J2371; J2405; J2704; J3010; J7030; J7120